=== PATIENT | female | born 1955 | race Caucasian/White ===

== ENCOUNTER 2017-12-22 09:49 | Outpatient (CLI) ==
--- NOTE | 2017-12-22 11:03 | US ---
EXAM: Bilateral carotid artery Doppler History: Dizziness, short of breath Technique: Multiple sonographic images through the bilateral internal carotid arteries were obtained . Color duplex Doppler was used to interrogate vascular flow. Findings: The right ICA peak systolic velocity is within normal limits measuring 50 cm/sec. The right ICA/cca PSV ratio is normal at 0.80. The right vertebral artery is patent and demonstrates antegrade flow. Adler scale images demonstrate mild plaque buildup within the right internal carotid artery. The left ICA peak systolic velocity is within normal limits measuring 70 cm/sec. The left ICA/cca PS V ratio is normal at 1.0. The left vertebral artery is patent and demonstrates antegrade flow. Adler scale images demonstrate mild plaque buildup within the left internal carotid artery Impression: No significant hemodynamic stenosis of the bilateral internal carotid arteries.
== END 2017-12-22 09:50 | disposition home or self-care (01) ==
LOC: RAD 09:49
PROVIDERS: ATTEND Internal Medicine
DX: R42 Dizziness and giddiness (principal); R06.02 Shortness of breath
CPT/HCPCS: 93005; 93010

== ENCOUNTER 2018-01-09 09:01 | Outpatient (CLI) ==
--- NOTE | 2018-01-10 09:49 | MAMMO ---
EXAM: Bilateral digital screening mammogram (2-D and 3-D) History: Screening Comparison: Bilateral mammogram 01/03/2017 Findings: MLO and CC views of bilateral breasts demonstrate scattered fibroglandular breast parenchy ma. CAD was reviewed by the radiologist. Tomosynthesis was performed. There are no dominant masses , no suspicious microcalcifications and no architectural distortions Impression: Stable negative mammogram. Recommend followup routine screening mammography in 1 year. BIRADS 1
== END 2018-01-09 09:02 | disposition home or self-care (01) ==
LOC: RAD 09:01
PROVIDERS: ATTEND Nurse Practitioner
DX: Z12.31 Encounter for screening mammogram for malignant neoplasm of breast (principal)

== ENCOUNTER 2018-06-26 06:53 | Outpatient (CLI) ==
--- NOTE | 2018-06-26 09:04 | DI ---
EXAM: Two views of the chest. History: Short of breath Comparison: Chest radiograph 11/19 2013 Findings: Heart size is normal. Increased right diaphragmatic hernia or eventration. No consolidat ed pneumonia. No pleural fluid and no pneumothorax. No acute osseous abnormalities. Impression: Increased right diaphragmatic hernia or eventration. No evidence for pneumonia
--- NOTE | 2018-06-27 10:20 | ECHO2D ---
Date of Exam: 06/26/18 Ordering Physician: DR. KANDI LARA Room #: OP Reason for Echo: SOB, HYPERTENSION M-Mode Normal Adult Results LV Dimensions Normal Adult Results AoV Opening excursions >1.6 >1.6 LVEDD-base- 3.5-5.8 3.3 Ao root dimensions 2.0-3.7 3.6 LVESD-base- 3.1-4.6 L. Atrium dimensions 1.9-3.8 4.2 Post. Wall thickness 0.8-1.1 1.0 IV septum (thickness) 0.7-1.2 1.1 Post. Wall excursion 0.72-1.3 NORMAL Septal motion NORMAL Systolic motion R. Ventricular cavity 1.5-2.0 NORMAL LVEF 60% 74% Paradoxical septal wall motion NORMAL 2-D : 2-D M Mode Echocardiogram was performed using apical four chamber and left parasternal long and short axis views. Mitral, tricuspid and aortic valves appear to be normal. Contractility of the left ventricle seems to be normal, so is the cavity size. Enlarged Left atrial cavity. Aortic root appears to be normal. There is no pericardial effusion. There is no thrombus noted in the left ventricular or left aortic cavity. No mitral valve prolapse noted. M-MODE: MV: NORMAL AV: NORMAL TV: NORMAL PV: CHAMBER SIZE: ENLARGED LEFT ATRIAL CAVITY WALL MOTION: NORMAL PERICARDIUM: NORMAL INTERPRETATION: 1. MILD LEFT ATRIAL CAVITY ENLARGEMENT 2. NORMAL LEFT VENTRICULAR CONTRACTILITY 3. NORMAL VALVES MTDD
== END 2018-06-26 06:54 | disposition home or self-care (01) ==
LOC: CAR 06:53
PROVIDERS: ATTEND Internal Medicine
DX: R06.02 Shortness of breath (principal); I10 Essential (primary) hypertension
CPT/HCPCS: 93005; 93010

== ENCOUNTER 2018-06-27 06:52 | Outpatient (CLI) ==
[2018-06-27] MEDS ORDERED: ATROPINE SULFATE PFS ONE (07:23)
[2018-06-27] MEDS ORDERED: DOBUTAMINE 500 MG-D5W 250 ML 250 ML IV ONE (07:23)
--- NOTE | 2018-06-28 09:38 | ECHOSTRESS ---
Date of Exam: 06/27/18 Ordering Physician: DR. KANDI LARA Reason for Echo: SOB, HTN, DOBUTAMINE STRESS TEST--NO ISCHEMIA M-Mode Normal Adult Results LV Dimensions Normal Adult Results AoV Opening excursions >1.6 LVEDD-base- 3.5-5.8 Ao root dimensions 2.0-3.7 LVESD-base- 3.1-4.6 L. Atrium dimensions 1.9-3.8 Post. Wall thickness 0.8-1.1 IV septum (thickness) 0.7-1.2 Post. Wall excursion 0.72-1.3 Septal motion Systolic motion R. Ventricular cavity 1.5-2.0 LVEF 60% Paradoxical septal wall motion 2-D: NORMAL LEFT VENTRICULAR CONTRACTILITY--RESTING AND WITH DOBUTAMINE INFUSION M-MODE: MV: AV: TV: PV: CHAMBER SIZE: WALL MOTION: NORMAL LEFT VENTRICULAR CONTRACTILITY--RESTING AND WITH DOBUTAMINE INFUSION PERICARDIUM: INTERPRETATION: 1. NORMAL LEFT VENTRICULAR CONTRACTILITY--RESTING AND WITH DOBUTAMINE INFUSION MTDD
--- NOTE | 2018-06-28 09:47 | DOBSTECHO ---
Date of Test: 06/28/18 Ordering Physician: DR. KANDI LARA Occupation: RETIRED Reason for Examination: SOB, HYPERTENSION Current Medications: VENLAFAXINE, SIMVASTATIN, BENICAR, METOPROLOL Height: 67" Weight: 178 LBS Target Heart Rate: 133/157 S-T Segment Stage Time HR BPM BP MMHG Rhythm +/- Elevation Depression Symptoms Control Sitting 60 126/90 SR X NONE Dobutamine 250mg/D5W 5cmg/KG/mn 10cmg/KG/mn 3:00 75 118/84 SR X NONE 15cmg/KG/mn 2:00 79 122/80 SR X NONE 20cmg/KG/mn 2:00 83 138/78 SR X NONE 25cmg/KG/mn 2:00 90 132/70 SR X NONE 30cmg/KG/mn 2:00 96 SR X .25 ATROPINE 35cmg/KG/mn 2:00 127 136/76 SR X NONE 40cmg/KG/mn :10 127 146/70 SR X NONE 3 MIN POST INFUSION z 95 130/78 SR X NONE 6 MIN POST INFUSION z 74 122/84 SR X NONE DURATION OF INFUSION 13:10 MAXIMUM HEART RATE REACHED 127 BPM 98% OXYGEN SATURATION WITH DOBUTAMINE INFUSION ON ROOM AIR Interpretation: 1. NO EVIDENCE OF ISCHEMIA BY ST-T WAVE 2. NO CHEST PAIN OR DISCOMFORT 3. NORMAL LEFT VENTRICULAR CONTRACTILITY--RESTING AND POST EXERCISE MTDD
== END 2018-06-27 06:53 | disposition home or self-care (01) ==
LOC: CAR 06:52
PROVIDERS: ATTEND Internal Medicine
DX: R06.02 Shortness of breath (principal); I10 Essential (primary) hypertension